=== PATIENT | male | born 1930 | race Caucasian/White ===

== ENCOUNTER 2017-03-07 10:10 | Inpatient (IN) | payer OTHER ==
[~2017-03-07] VITALS: Ht 170.2 cm; Wt 77.1 kg
--- NOTE | 2017-03-07 10:10 | NUR ---
PATIENT BIB AMBULANCE TO ER BED 1
--- NOTE | 2017-03-07 10:15 | NUR ---
86M BIBA FROM HOME C/O DIZZINESS X THIS MORNING; PT AA&OX4, PERRLA, STATES NO BLURRY VISION OR VISION CHANGES AT THIS TIME; PT STATES " WHEN I MOVE TOO FAST I FEEL DIZZY, BUT WHEN I'M RESTING I'M OK"; PT STATES NO PAIN AND NO N/V/D AT THIS TIME; BL LUNG SOUNDS CLEAR, RR EVEN/UNLABORED, SKIN IS WARM/DRY/INTACT AT THIS TIME; PT NOTED WITH NON-PITTING EDEMA TO BL LEGS AT THIS TIME; PT AMBULATES WITH CANE; PT RESTING IN BED WITH HOB ELEVATED AND IN LOWEST POSITION; POSITIONED FOR COMFORT; ER MD MADE AWARE OF STATUS. WILL CONTINUE TO MONITOR.
[2017-03-07 10:18] VITALS: BP 145/105
--- NOTE | 2017-03-07 10:26 | NUR ---
DR. FINK EVALUATING PATIENT
[2017-03-07] MEDS ORDERED: TAMS0.4C96 PO (10:32)
[2017-03-07] MEDS ORDERED: FURO-572 PO (10:32)
[2017-03-07] MEDS ORDERED: ATOR10TA PO (10:32)
[2017-03-07] MEDS ORDERED: OMEP20TC12 PO (10:32)
[2017-03-07] MEDS ORDERED: POTA8TER12 PO (10:32)
[2017-03-07] MEDS ORDERED: DONE5TAB6 PO (10:32)
--- NOTE | 2017-03-07 10:40 | NUR ---
XRAY AT BEDSIDE.
[2017-03-07] MEDS: MECLIZINE 25 MG TAB PO ONE ×2 (11:01→11:05)
--- NOTE | 2017-03-07 11:02 | NUR ---
PT REFSUED MECLIZINE ORDERED BY ER MD DR. FIKN; RISKS/BENEFITS OF MEDICATION EXPLAINED; PT STATES " I'M OK FOR RIGHT NOW"; ER MD DR. FINK NOTIFIED; WILL CONTINUE TO MONITOR.
--- NOTE | 2017-03-07 11:02 | NUR ---
Note maria elenadelia in EDM - 03/07/17 at 1103 by MEDJ PT REFSUED MECLIZINE ORDERED BY GABRIELLE FINK; RISKS/BENEFITS OF MEDICATION EXPLAINED; PT STATES " I'M OK FOR RIGHT NOW"; GABRIELLE FINK NOTIFIED; WILL CONTINUE TO MONITOR.
[2017-03-07 11:17] LABS: ANION GAP 10.4 (8-16); CARBON DIOXIDE 31.5 mmol/L (21-32); CHLORIDE 105 mmol/L (98-107); CREATININE 1.4 mg/dL (0.7-1.3); GLUCOSE 120 mg/dL (74-106); POTASSIUM 3.9 mmol/L (3.5-5.1); SODIUM SERUM 143 mmol/L (136-145); UREA NITROGEN, BLOOD 11 mg/dL (7-18)
[2017-03-07] MEDS ORDERED: NACL 0.9% 1,000 ML IV ONE (11:20)
[2017-03-07 11:21] LABS: BASOPHILS # (AUTO) 0.1 K/uL (0.00-0.22); EOSINOPHILS # (AUTO) 0.1 K/uL (0-0.4); EOSINOPHILS % (AUTO) 2.5 % (0.0-4.0); HEMATOCRIT 38.8 % (36-52); HEMOGLOBIN 12.9 g/dL (12.0-18.0); LYMPHOCYTES # (AUTO) 0.6 K/uL (2.0-11.5); LYMPHOCYTES % (AUTO) 20.7 % (20.5-51.1); MEAN CORPUSCULAR HEMOGLOBIN 30 pg (27-31); MEAN CORPUSCULAR HGB CONC 33 g/dL (33-37); MEAN CORPUSCULAR VOLUME 91 fL (80-94); MONOCYTES # (AUTO) 0.3 K/uL (0.8-1.0); MONOCYTES % (AUTO) 8.4 % (1.7-9.3); NEUTROPHILS # (AUTO) 1.9 K/uL (1.8-7.7); NEUTROPHILS % (AUTO) 66.4 % (42.2-75.2); PLATELET COUNT (AUTO) 195 K/uL (140-450); RED BLOOD CELL COUNT(AUTO) 4.27 MIL/uL (4.20-6.10); RED CELL DISTRIBUTION WIDTH 14.4 % (11.6-13.7)
[2017-03-07 11:25] LABS: ALBUMIN 3.2 g/dL (3.4-5.0); ASPARTATE AMINOTRANSFERASE 17 U/L (15-37); TOTAL BILIRUBIN 0.6 mg/dL (0.0-1.0)
[2017-03-07] MEDS ORDERED: MECLIZINE 25 MG TAB PO ONE (12:10)
--- NOTE | 2017-03-07 12:30 | NUR ---
PT APPEARS TO BE RESTING COMFORTABLY IN DELANEY; VSS; RR EVEN/UNLABORED; WILL CONTINUE TO MONITOR.
[2017-03-07] MEDS ORDERED: ONDANSETRON 4 MG/2 ML VIAL IM/IVP PRN (12:35)
[2017-03-07] MEDS ORDERED: ACETAMINOPHEN 325 MG TAB PO PRN (12:35)
[2017-03-07] MEDS ORDERED: DOCUSATE SODIUM 100 MG GELCAP PO PRN (12:35)
[2017-03-07] MEDS ORDERED: HYDROcodone/APAP 7.5/325 MG 1 TAB PO PRN (12:35)
--- NOTE | 2017-03-07 13:00 | NUR ---
PT STATES UNABLE TO PROVIDE URINE AT THIS TIME; ER MD DR. FINK NOTIFIED.
--- NOTE | 2017-03-07 13:03 | NUR ---
CALLED [facility] TO LET RN KNOW PT BEING TRANSPORTED TO FLOOR AT THIS TIME.
--- NOTE | 2017-03-07 13:05 | NUR ---
Patient will be admitted to care of DR. MICHELLE. Admited to TELEMETRY. Will go to room 110A. Belongings list completed. Beside report given to NATTY Aguilar.
[2017-03-07 13:10] VITALS: BP 122/78
--- NOTE | 2017-03-07 13:10 | NUR ---
RECEIVED PT FROM ER ASSISTED BY ER NURSE. PT AWAKE. ALERT ORIENTED X4. NO SOB NOTED. DENIES ANY PAIN OR DISCOMFORT AT THIS TIME. PT AMBULATES WITH CANE AND WITH ASSIST. DENIES DIZZINESS AT THIS TIME. SAFETY PRECAUTION IN PLACE. CALL LIGHT WITHIN REACH.
[2017-03-07 13:15] VITALS: BP 134/85
[2017-03-07 13:20] VITALS: BP 131/83
[2017-03-07] MEDS ORDERED: MECLIZINE 25 MG TAB PO PRN (13:20)
[2017-03-07 13:27] LABS: PROTHROMBIN TIME 10.6 secs (10.8-13.4)
[2017-03-07 13:39] LABS: CHOL/HDL RATIO 3.5 (1-4.5); FREE T4 (FREE THYROXINE) 0.87 ng/dL (0.76-1.46); MAGNESIUM 1.9 mg/dL (1.8-2.4); PHOSPHORUS 2.7 mg/dL (2.5-4.9); THYROID STIMULATING HORMONE 2.42 uIU/mL (0.34-3.74)
[2017-03-07] MEDS: NACL 0.9% 1,000 ML IV SCH (14:14)
[2017-03-07 15:33] LABS: APPEARANCE,URINE CLEAR (CLEAR); BILIRUBIN,URINE NEGATIVE (NEGATIVE); BLOOD, URINE NEGATIVE (NEGATIVE); COLOR,URINE YELLOW (YELLOW); LEUKOCYTE ESTERASE ,URINE NEGATIVE (NEGATIVE); NITRITE, URINE NEGATIVE (NEGATIVE); UGLUCOSE NEGATIVE (NEGATIVE)
--- NOTE | 2017-03-07 15:36 | NUR ---
PT IN BED AWAKE. PROVIDED WITH SNACKS. TOLERATED WELL. NO SOB NOTED. DENIES ANY PAIN OR DISCOMFORT AT THIS TIME. DENIES ANY DIZZINESS AT THIS TIME. DR. DE LEÓN CAME TO SEE PT.
[2017-03-07 16:00] VITALS: BP 158/97
--- NOTE | 2017-03-07 18:14 | NUR ---
PT KEPT CLEAN, DRY AND COMFORTABLE, NEEDS ATTENDED. PT TOLERATED HIS MECHANICAL SOFT DIET. NO SOB NOTED. DENIES ANY PAIN OR DISCOMFORT OR DIZZINESS AT THIS TIME. WILL ENDORSE TO NEXT SHIFT. PT ON STABLE CONDITION. FOR CONTINUITY OF CARE.
--- NOTE | 2017-03-07 19:05 | NUR ---
RECEIVED REPORT AT BEDSIDE FROM DAY SHIFT RN. PT A/OX4 ON ROOM AIR. PT HAS A 22G IV TO LEFT FOREARM. FALL PRECAUTION PROTOCOL IN PLACE. SKIN INTACT. SAFETY PRECAUTIONS IN PLACE. UPDATED BOARD. VITAL SIGNS WITHIN NORMAL LIMITS. PT IN STABLE CONDITION, NO SIGNS OF DISTRESS NOTED. BED IN LOW POSITION, CALL LIGHT WITHIN REACH. WILL CONTINUE TO MONITOR.
[2017-03-07 20:00] VITALS: BP 125/90
[2017-03-08] VITALS (7 sets, daily range): BP systolic 140–161; BP diastolic 62–87
[2017-03-08] MEDS: NACL 0.9% 1,000 ML IV SCH ×2 (06:13→11:13)
[2017-03-08 06:57] LABS: BASOPHILS % (AUTO) 1.2 % (0.0-2.0); EOSINOPHILS # (AUTO) 0.1 K/uL (0-0.4); EOSINOPHILS % (AUTO) 3.3 % (0.0-4.0); HEMATOCRIT 33.2 % (36-52); HEMOGLOBIN 11.2 g/dL (12.0-18.0); LYMPHOCYTES % (AUTO) 24.7 % (20.5-51.1); MEAN CORPUSCULAR HEMOGLOBIN 31 pg (27-31); MEAN CORPUSCULAR HGB CONC 34 g/dL (33-37); MEAN CORPUSCULAR VOLUME 92 fL (80-94); MONOCYTES # (AUTO) 0.4 K/uL (0.8-1.0); MONOCYTES % (AUTO) 10.5 % (1.7-9.3); NEUTROPHILS # (AUTO) 2.5 K/uL (1.8-7.7); NEUTROPHILS % (AUTO) 60.3 % (42.2-75.2); PLATELET COUNT (AUTO) 163 K/uL (140-450); RED BLOOD CELL COUNT(AUTO) 3.62 MIL/uL (4.20-6.10); RED CELL DISTRIBUTION WIDTH 14.4 % (11.6-13.7)
[2017-03-08 07:14] LABS: ANION GAP 9.1 (8-16); CHLORIDE 109 mmol/L (98-107); CREATININE 1.1 mg/dL (0.7-1.3); GLUCOSE 93 mg/dL (74-106); POTASSIUM 4.1 mmol/L (3.5-5.1); SODIUM SERUM 143 mmol/L (136-145); UREA NITROGEN, BLOOD 9 mg/dL (7-18)
--- NOTE | 2017-03-08 07:16 | NUR ---
ENDORSED PT TO DAY SHIFT RN FOR CONTINUITY OF CARE, PT IN STABLE CONDITION.
--- NOTE | 2017-03-08 07:17 | NUR ---
RECEIVED PT IN BED. ASLEEP. AROUSABLE TO VOICE. ALERT ORIENTED X4. NO SOB NOTED. DENIES ANY PAIN OR DISCOMFORT AT THIS TIME. PT AMBULATORY WITH CANE/ASSIST. SAFETY PRECAUTION IN PLACE. CALL LIGHT WITHIN REACH.
--- NOTE | 2017-03-08 07:30 | NUR ---
PT GOT UP FROM BED. VERY CONFUSED TRYING TO GET IV LINE OUT. REORIENTATION DONE WITH MINIMAL EFFECTIVENESS. PT DOESN'T WANT TO SIT DOWN. 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 VERBALIZING HE IS THE BIG BAD VIZCAINO. RESIDENTS DOING THEIR ROUNDS. DR. DE LEÓN CAME TO SEE PT. PT HAD HIS BREAKFAST TOLERATED WELL.
[2017-03-08] MEDS ORDERED: NON-FORMULARY ITEM (Omeprazole (Omeprazole) 20 MG) PO SCH (09:00)
--- NOTE | 2017-03-08 09:00 | NUR ---
PATIENT HAS BEEN SCREENED AND CATEGORIZED MODERATE NUTRITION RISK. PATIENT WILL BE SEEN WITHIN 3-5 DAYS OF ADMISSION. 03/09/17-03/11/17 Y Addendum: 03/08/17 at [address] PATIENT HAS BEEN RESCREENED AND RECATEGORIZED HIGH NUTRITION RISK. PATIENT WILL BE SEEN WITHIN 1-2 DAYS OF ADMISSION. 03/07/17-03/08/[address] Addendum: 03/08/17 at [address] FNS REFERRAL INAPPROPRIATE, NOTED "NOT APPLICABLE" PATIENT HAS BEEN SCREENED AND CATEGORIZED MODERATE NUTRITION RISK. PATIENT WILL BE SEEN WITHIN 3-5 DAYS OF ADMISSION. PLEASE DISMISS THE ABOVE ADDENDUM. 03/09/17-03/11/[address]
--- NOTE | 2017-03-08 09:00 | NUR ---
PT CAME TO SEE PT. PT AMBULATED WITH A WALKER ALONG THE HALLWAY. TOLERATED WELL. SOME CONFUSION STILL NOTED. REORIENTATION DONE NEEDED. PT REDIRECTED PT BACK TO HIS BED, PT COOPERATED. PT RECEIVED A PHONE CALL FROM SON. PT REMAINED CALM IN BED. TOOK HIS MORNING MEDS.
[2017-03-08] MEDS: QUEtiapine FUMARATE 25 MG TAB PO SCH ×2 (09:08→20:35)
[2017-03-08] MEDS: TAMSULOSIN 0.4 MG CAP PO SCH (09:09)
[2017-03-08] MEDS: PANTOPRAZOLE 40 MG TABEC PO SCH (09:09)
[2017-03-08] MEDS: FUROSEMIDE 20 MG TAB PO SCH (09:10)
[2017-03-08] MEDS: ATORVASTATIN 20 MG TAB PO SCH (09:10)
[2017-03-08] MEDS: DONEPEZIL 10 MG TAB PO SCH (09:10)
[2017-03-08] MEDS: POTASSIUM CHLORIDE 8 MEQ TABER PO SCH (09:33)
--- NOTE | 2017-03-08 10:25 | NUR ---
PT ASLEEP AT THIS TIME. NO SIGNS AND SYMPTOMS OF ACUTE DISTRESS NOTED AT THIS TIME.
--- NOTE | 2017-03-08 12:00 | NUR ---
PT WOKE UP AND TRIED TO GET OUT OF BED, SOME CONFUSION NOTED. BED ALARM ON. REORIENTATION DONE, AND WAS EFFECTIVE AT THIS TIME. OFFERED PT TO USE THE BATHROOM. REDIRECTED TO BED, PT COOPERATIVE AT THIS TIME. MAINTAINED ON 1:1 SITTER, FOR SAFETY.
--- NOTE | 2017-03-08 18:15 | NUR ---
PT KEPT CLEAN, DRY AND COMFORTABLE, NEEDS ATTENDED. NO SOB NOTED. DENIES ANY PAIN OR DISCOMFORT AT THIS TIME. PT CALM RIGHT NOW. FINISHED HIS DINNER, TOLERATED WELL. REORIENTATION EFFECTIVE AT THIS TIME. MAINTAINED ON 1:1 SITTER. WILL ENDORSE TO NEXT SHIFT. PT ON STABLE CONDITION. FOR CONTINUITY OF CARE.
--- NOTE | 2017-03-08 19:37 | NUR ---
RECEIVED FROM AM RN IN BED SLEEPING. WITH 1:1 SITTER AT THIS TIME RT CONFUSION. TELEMETRY MONITORING. IVF SITE TO LFA#20 COVERED WITH KERLIX FOR PT. TO AVOID PULLING IT OUT. DX. OF DIZZINESS,LIGHT HEADEDNESS AND SOB. FLACC 0- AT THIS TIME. NEEDS WILL BE ANTICIPATED AND WILL BE MET.
--- NOTE | 2017-03-08 22:10 | NUR ---
PT. ABLE TO TOLERATE P.O MEDICATION GIVEN. WENT BACK TO SLEEP. SITTER 1:1 RT GETS TOO CONFUSED WHEN AWAKE. NEEDS ANTICIPATED AND WILL BE MET. TOTAL CARE.
--- NOTE | 2017-03-08 23:46 | NUR ---
PT. AWAKE RT URINATED AND WET HIS BED. PT. KEPT CLEAN AND DRY. WENT BACK TO SLEEP. ABLE TO VERBALIZE SIMPLE NEEDS. TELEMETRY MONITORING.
--- NOTE | 2017-03-09 02:00 | NUR ---
SLEEPING. SITTER 1:1.
[2017-03-09 04:00] VITALS: BP 148/86
--- NOTE | 2017-03-09 04:00 | NUR ---
SITTER 1:1. SLEEPING. WAKES UP WHEN TOUCHED. TELEMETRY MONITORING.
--- NOTE | 2017-03-09 05:51 | NUR ---
PT. STILL ON 1:1 SITTER . PT. AWAKE AT THIS TIME AND TRYING HARD TO GO TO THE RESTROOM BY HIMSELF. SITTER AND OTHER CNAS TALKED TO HIM AND TRIED TO PACIFY PT. PT. PULLED OUT IVF TUBING. PROVIDED WITH SNACKS AND TALKED WITH HIM TO CALM HIM DOWN. PT. AGREED TO GO BACK TO BED AND EAT HIS FOOD. NO SOB. DENIES PAIN. FALL PRECAUTIONS DONE. BED ALARM MADE SURE IS ON.
[2017-03-09 06:15] LABS: T4 (THYROXINE) 5.2 ug/dL (4.5-12.0)
[2017-03-09 07:02] LABS: ANION GAP 12.6 (8-16); CARBON DIOXIDE 25.2 mmol/L (21-32); CHLORIDE 106 mmol/L (98-107); CREATININE 1.2 mg/dL (0.7-1.3); GLUCOSE 158 mg/dL (74-106); POTASSIUM 3.8 mmol/L (3.5-5.1); SODIUM SERUM 140 mmol/L (136-145); UREA NITROGEN, BLOOD 11 mg/dL (7-18)
--- NOTE | 2017-03-09 07:26 | NUR ---
RECEIVED REPORT FROM AD WRITER NURSE JOSE AT BEDSIDE FOR CONTINUITY OF CARE. PT IS A/O X 2. CONFUSED. INTRODUCED SELF AND UPDATED BOARD. SITTER IS AT BEDSIDE. NO SIGNS OF DISTRESS. BED IN LOW POSITION, WHEELS LOCKED, CALL LIGHT WITHIN REACH. WILL CONTINUE CLOSE MONITORING.
--- NOTE | 2017-03-09 07:26 | NUR ---
SLEEPING AT THIS TIME. SITTER 1:1 AND ENDORSED TOT HE NEXT RN FOR CONTINUITY OF CARE.
[2017-03-09 08:00] VITALS: BP 152/90
[2017-03-09] MEDS: DONEPEZIL 10 MG TAB PO SCH (08:50)
[2017-03-09] MEDS: POTASSIUM CHLORIDE 8 MEQ TABER PO SCH (08:50)
[2017-03-09] MEDS: FUROSEMIDE 20 MG TAB PO SCH (08:51)
[2017-03-09] MEDS: QUEtiapine FUMARATE 25 MG TAB PO SCH ×2 (08:51→21:14)
[2017-03-09] MEDS: TAMSULOSIN 0.4 MG CAP PO SCH (08:51)
[2017-03-09] MEDS: ATORVASTATIN 20 MG TAB PO SCH (08:51)
[2017-03-09] MEDS: PANTOPRAZOLE 40 MG TABEC PO SCH (08:51)
--- NOTE | 2017-03-09 11:11 | NUR ---
CHECKED ON PT IN ROOM. PT IS SLEEPING IN BED RIGHT NOW. NO SIGNS OF DISTRESS. 1:1 SITTER AT BEDSIDE. WILL CONTINUE TO MONITOR.
[2017-03-09 12:00] VITALS: BP 157/77
--- NOTE | 2017-03-09 12:00 | NUR ---
I attempted to contact Patients friend Mrs. Alonso Ford at there was no response. This advertising writer left her a MSG requesting a call
[2017-03-09] MEDS: NACL 0.9% 1,000 ML IV SCH (14:33)
[2017-03-09 16:00] VITALS: BP 144/71
--- NOTE | 2017-03-09 17:50 | NUR ---
PT IS SITTING UP IN BED EATING DINNER. REFUSED TO HAVE IV FLUIDS CONNECTED. STATED "HE DID NOT WANT TO HAVE TO USE THE BATHROOM A LOT." EXPLAINED TO PT PURPOSE OF IVF. PT STILL REFUSED. CONNECT TO SL. NO OTHER COMPLAINTS AT THIS TIME. SITTER AT BEDSIDE. WILL CONTINUE TO MONITOR.
--- NOTE | 2017-03-09 19:20 | NUR ---
ENDORSED PT TO HAND PLUG SHAPER NURSE AT BEDSIDE FOR CONTINUITY OF CARE. SITTER AT BEDSIDE. PT IN STABLE CONDITION.
--- NOTE | 2017-03-09 19:30 | NUR ---
RECEIVED FROM AM RN IN BED AWAKE AND ALERT. SITTING IN BED. TELEMETRY MONITORING. NO SOB. PT. ABLE TO VERBALIZE NEEDS WELL. PT. WITH GOOD AFFECT AT THIS TIME. BED ALARM ON AND WITH SITTER.
[2017-03-09 20:24] VITALS: BP 140/64
--- NOTE | 2017-03-09 21:46 | NUR ---
PT. STOOD UP AND INSISTED TO GO RESTROOM . STANDBY ASSIST WITH SITTER. PT. USED CANE FOR SUPPORT AND ABLE TO CHANGE HIS DIAPER AND PT. URINATED IN RESTROOM BY HIMSELF. REFUSED TO BE ASSISTED. PROVIDED WITH SNACK. GOOD AFFECT.
--- NOTE | 2017-03-09 22:36 | NUR ---
PT. IN BED SITTING UP AND WATCHING TV. ENCOURAGED TO SLEEP . SITTER 1:1. VERBALIZES NEEDS WELL.
[2017-03-10 00:07] VITALS: BP 140/60
--- NOTE | 2017-03-10 00:20 | NUR ---
SLEEPING. SITTER 1:1. NO RESTLESSNESS. CALL LIGHT WITH IN REACH. ON TELEMETRY MONITORING.
--- NOTE | 2017-03-10 04:10 | NUR ---
WOKE UP AT THIS TIME. ASSISTED TO RESTROOM. USES CANE TO WALK. PREFERS TO BE INDEPENDENT. STANDBY ASSIST BY SITTER 1:1. NO SOB. DENIES PAIN AT THIS TIME.
[2017-03-10 04:23] VITALS: BP 142/66
[2017-03-10] MEDS: NACL 0.9% 1,000 ML IV SCH (06:35)
--- NOTE | 2017-03-10 06:35 | NUR ---
PT. REFUSED TO HAVE IVF RE-STARTED. REFUSED SINCE YESTERDAY DAY SHIFT AND MD AWARE OF IT. PT. BEEN GOOD TODAY. GOOD AFFECT. NO SOB. AMBULATING BY HERSELF WITH CANE AND ADAMANTLY REFUSES TO HAVE SOMEONE HOLDING HIM. STANDBY ASSIST FOLLOWING HIM FOR SUPPORT IN CASE HE FALLS OR SLIPS.
--- NOTE | 2017-03-10 07:20 | NUR ---
RECEIVED REPORT FROM LANGUAGE ASST NURSE JOSE AT BEDSIDE FOR CONTINUITY OF CARE. PT IS AWAKE AND ORIENTED TO PERSON AND PLACE. INTRODUCED SELF AND UPDATED BOARD. SITTER AT BEDSIDE. NO SIGNS OF DISTRESS. WILL CONTINUE TO MONITOR.
[2017-03-10 07:35] LABS: BASOPHILS # (AUTO) 0.1 K/uL (0.00-0.22); BASOPHILS % (AUTO) 1.7 % (0.0-2.0); EOSINOPHILS # (AUTO) 0.2 K/uL (0-0.4); EOSINOPHILS % (AUTO) 4.1 % (0.0-4.0); HEMATOCRIT 37.5 % (36-52); HEMOGLOBIN 12.7 g/dL (12.0-18.0); LYMPHOCYTES # (AUTO) 1.4 K/uL (2.0-11.5); LYMPHOCYTES % (AUTO) 29.3 % (20.5-51.1); MEAN CORPUSCULAR HEMOGLOBIN 31 pg (27-31); MEAN CORPUSCULAR HGB CONC 34 g/dL (33-37); MEAN CORPUSCULAR VOLUME 90 fL (80-94); MONOCYTES # (AUTO) 0.4 K/uL (0.8-1.0); MONOCYTES % (AUTO) 7.6 % (1.7-9.3); NEUTROPHILS # (AUTO) 2.8 K/uL (1.8-7.7); NEUTROPHILS % (AUTO) 57.3 % (42.2-75.2); PLATELET COUNT (AUTO) 193 K/uL (140-450); RED BLOOD CELL COUNT(AUTO) 4.15 MIL/uL (4.20-6.10); RED CELL DISTRIBUTION WIDTH 14.1 % (11.6-13.7); WHITE BLOOD COUNT (AUTO) 4.9 K/uL (4.8-10.8)
[2017-03-10 07:45] LABS: ANION GAP 7.3 (8-16); CARBON DIOXIDE 31.5 mmol/L (21-32); CHLORIDE 104 mmol/L (98-107); CREATININE 1.2 mg/dL (0.7-1.3); GLUCOSE 91 mg/dL (74-106); POTASSIUM 3.8 mmol/L (3.5-5.1); SODIUM SERUM 139 mmol/L (136-145); UREA NITROGEN, BLOOD 14 mg/dL (7-18)
[2017-03-10 08:00] VITALS: BP 151/90
[2017-03-10] MEDS: ATORVASTATIN 20 MG TAB PO SCH (08:15)
[2017-03-10] MEDS: FUROSEMIDE 20 MG TAB PO SCH (08:15)
[2017-03-10] MEDS: DONEPEZIL 10 MG TAB PO SCH (08:15)
[2017-03-10] MEDS: TAMSULOSIN 0.4 MG CAP PO SCH (08:15)
[2017-03-10] MEDS: QUEtiapine FUMARATE 25 MG TAB PO SCH ×2 (08:16→21:00)
[2017-03-10] MEDS: PANTOPRAZOLE 40 MG TABEC PO SCH (08:16)
[2017-03-10] MEDS: POTASSIUM CHLORIDE 8 MEQ TABER PO SCH (08:16)
--- NOTE | 2017-03-10 13:45 | NUR ---
CHECKED ON PT IN ROOM. PT IS SITTING UP IN BED WATCHING TV. DAUGHTER IS AT BEDSIDE. WITH 1:1 SITTER. NO SIGNS OF DISTRESS. WILL CONTINUE TO MONITOR.
--- NOTE | 2017-03-10 13:52 | NUR ---
I met with patient and friend Alonso Ford (animal damage control agent) at bedside to discuss and confirm patients information. Mrs. Ford confirmed that patient is living home in own apartment and that she is only assisting him on caring for his needs when it comes to cleaning, groceries shopping and transportation for his appointments. She also reported that patient do not like to take medications and go MD visits however; she assist him with transporting patient to his check ups with MD. Ruiz at [facility] and that Patient has already an appointment scheduled on 03/21/17. Patient was calm and pleased friend was at bedside and confirmed information provided. brewery worker ask Mrs. Ford about family involvement and advance directives. She stated that patient has 2 sons out of state and that they are not very involved with patient neither would be involved on his decision making per choice, however; she still contact them to inform them both about patient and his health status. Mrs. Ford then provided certified social workers in health care with their contact information. Alek Larry and Renny Larry . Patient stated been interested on getting advance directive forms and stated wanting to go with friend Alonso Ford to a [facility] and complete forms. brewery worker provided forms to patient and friend and explained both the process. Patient stated that he is thinking to move in with friend in the near future because he has been thinking about his needs with care but its just not ready yet. Patient stated wanting to go back home and continue to be assisted with his care and transportation by his friend (Alonso Ford). She agreed and stated not having any questions at the time and thank certified social workers in health care for the information and forms provided.
--- NOTE | 2017-03-10 15:00 | NUR ---
PT IS SITTING IN BED WATCHING TV. SITTER AT BEDSIDE. GOT UP TO USE RESTROOM WITH STEADY GAIT. STANDBY ASSIST. NO SIGNS OF DISTRESS. WILL CONTINUE TO MONITOR.
[2017-03-10 16:00] VITALS: BP 137/100
--- NOTE | 2017-03-10 19:27 | NUR ---
ENDORSED PT TO MIXER SLAGMAN NURSE BERNICE AT BEDSIDE FOR CONTINUITY OF CARE. PT IS AWAKE AND ORIENTED. IN STABLE CONDITION.
--- NOTE | 2017-03-10 19:28 | NUR ---
RECEIVED HANDOFF REPORT FROM AM RN. PATIENT A&OX3. PATIENT DENIES PAIN. IV SITE PATENT AND INTACT BUT PATIENT REFUSES IV SOLUTION. NO SIGNS OR SYMPTOMS OF ACUTE DISTRESS NOTED. CALL LIGHT WITHIN REACH. WILL CONTINUE TO MONITOR.
--- NOTE | 2017-03-10 20:40 | NUR ---
PATIENT REFUSES TO TAKE PM MEDS. EDUCATION PROVIDED. REINFORCEMENT NEEDED. NO SIGNS OR SYMPTOMS OF ACUTE DISTRESS NOTED. CALL LIGHT WITHIN REACH. WILL CONTINUE TO MONITOR.
[2017-03-11] VITALS: BP 130/68
--- NOTE | 2017-03-11 00:10 | NUR ---
PATIENT RESTING IN BED. PATIENT DENIES PAIN. NO SIGNS OR SYMPTOMS OF ACUTE DISTRESS NOTED. CALL LIGHT WITHIN REACH. WILL CONTINUE TO MONITOR.
--- NOTE | 2017-03-11 05:56 | NUR ---
PATIENT AWAKE WATCHING TV IN CHAIR. PATIENT DENIES PAIN. NO SIGNS OR SYMPTOMS OF ACUTE DISTRESS NOTED. CALL LIGHT WITHIN REACH. WILL CONTINUE TO MONITOR.
[2017-03-11] MEDS: NACL 0.9% 1,000 ML IV SCH (06:17)
--- NOTE | 2017-03-11 07:19 | NUR ---
ENDORSED PLAN OF CARE TO AM RN. PATIENT IN STABLE CONDITION.
--- NOTE | 2017-03-11 07:20 | NUR ---
ENDORSEMENT RECEIVED FROM EMULSION COATER NURSE. PATIENT IS AWAKE, SITTING ON THE CHAIR. RESPIRATION EVEN, UNLABOR. SKIN DRY AND WARM. IV PATENT AND INTACT. DENIED PAIN, N/V. FALL PRECAUTION WAS APPLIED WITH 1:1 SITTER. PLAN OF CARE WAS DISCUSSED WITH PATIENT. BED AT LOW POSITION, SIDES RAILS UP. CALL LIGHT WITHIN REACH.
[2017-03-11 08:00] VITALS: BP 137/54
[2017-03-11] MEDS: POTASSIUM CHLORIDE 8 MEQ TABER PO SCH (09:00)
[2017-03-11] MEDS: FUROSEMIDE 20 MG TAB PO SCH (09:00)
[2017-03-11] MEDS: ATORVASTATIN 20 MG TAB PO SCH (09:14)
[2017-03-11] MEDS: PANTOPRAZOLE 40 MG TABEC PO SCH (09:15)
[2017-03-11] MEDS: TAMSULOSIN 0.4 MG CAP PO SCH (09:16)
[2017-03-11] MEDS: QUEtiapine FUMARATE 25 MG TAB PO SCH (09:17)
[2017-03-11] MEDS: DONEPEZIL 10 MG TAB PO SCH (09:18)
--- NOTE | 2017-03-11 11:30 | NUR ---
PATIENT IS AWAKE, SITTING ON THE CHAIR. RESPIRATION EVEN, UNLABOR. DENIED PAIN, SOB, DIZZINESS. CALL LIGHT WITHIN REACH. WILL CONTINUE TO MONITOR
--- NOTE | 2017-03-11 15:54 | NUR ---
CALLED GUSTAVO SIHD[facility] PT'S FRIEND REGARDING DISCHARGE AND PER GUSTAVO SHE IS CURRENTLY IN [place] BUT WILL BE ABLE TO PICK PT UP AT 7PM.
[2017-03-11 16:00] VITALS: BP 91/52
--- NOTE | 2017-03-11 19:24 | NUR ---
ENDORSEMENT IS GIVEN TO THE MOTH PROOFER NURSE. PATIENT IS STABLE AT THIS TIME. HOME MEDS WERE GIVEN BACK TO THE PATIENT. IV WAS REMOVED WITH CATHETER TIP INTACT, NO ACTIVE BLEEDING SEEN, PATIENT TOLERATED WELL.
--- NOTE | 2017-03-11 19:25 | NUR ---
RECEIVED HANDOFF REPORT FROM AM RN. PATIENT A&OX3. PATIENT DENIES PAIN. PATIENT HAS BEEN DISCHARGED. TRACK MANAGER HAS BEEN CALLED. WAITING ON TRACK MANAGER FOR PICKUP AND CONTINUITY OF CARE. NO SIGNS OR SYMPTOMS OF ACUTE DISTRESS. WILL CONTINUE TO MONITOR.
--- NOTE | 2017-03-11 19:55 | NUR ---
SPECIAL EDUCATION RESOURCE ROOM TEACHER HERE TO RUBY DEVELOPER PATIENT. PATIENT IN STABLE CONDITION. PATIENT OFF UNIT VIA WHEELCHAIR.
== END 2017-03-11 19:55 | disposition home or self-care (01) | DRG 56 ==
LOC: MED 10:10 → MTU 12:42
PROVIDERS: ADMIT Family Medicine Sports Medicine; ATTEND Family Medicine Sports Medicine
DX: G30.9 Alzheimer's disease, unspecified (principal); N17.0 Acute kidney failure with tubular necrosis; G93.41 Metabolic encephalopathy; F02.81 Dementia in other diseases classified elsewhere, unspecified severity, with behavioral disturbance; F05 Delirium due to known physiological condition; G90.9 Disorder of the autonomic nervous system, unspecified; I10 Essential (primary) hypertension; E87.6 Hypokalemia; E78.5 Hyperlipidemia, unspecified; N40.0 Benign prostatic hyperplasia without lower urinary tract symptoms; F17.200 Nicotine dependence, unspecified, uncomplicated
CPT/HCPCS: 36415; 70450; 71010; 80048; 80053; 81003; 83036; 83735; 83880; 84100; 84436; 84439; 84443; 84479; 84484; 85025; 85610; 85730; 87081; 93880; 96360; 97110; 97116; 97530; 99285; J7030; J8597; Q0092